=== PATIENT | female | born 1995 | race Caucasian/White ===

== ENCOUNTER 2024-07-24 10:47 | Inpatient (IN) | payer OTHER, SELFPAY ==
[2024-07-24] VITALS (16 sets, daily range): BP systolic 102–121; BP diastolic 70–83; PULSE 104–142; RESP 16–26; TEMP 36.8–38.3; O2SAT 93–98; BMI 23.4; BMI 50.8
--- NOTE | 2024-07-24 11:53 | EX.ED.DYSGE1 ---
HPI History of Present Illness Chief Complaint: General Illness Informant: patient Onset/Context/Timing Onset: Today Context: Sudden Onset Timing: Continuous Quality: Cannot take a deep breath Location: Chest Worsened by: Nothing Relieved by: Oxygen, Fan Narrative Narrative: Patient presents with shortness of breath and not feeling well that began today. Patient states it began rather suddenly. Patient states she woke up like that this morning. Patient states she feels like she cannot take a deep breath. Patient states that EMS administered oxygen which seemed to help. Patient states she also sat in front of a fan today which helped. Patient admits to a fever of 102. Patient states that several family members have been sick with similar symptoms recently. Patient states she is coughing up some thick sputum. Patient states she did not look at it and does not know what color it was. Patient states she feels like her heart is racing at times. Patient also admits to generalized headache. PFSH PFS Medical History no medical history no medical history Home Medications ?Medication ?Instructions ?Recorded ?Last Taken ?Type NK 07/24/24 Unknown History Allergy/AdvReac Type Severity Reaction Status Date / Time No Known Allergies Allergy Verified 07/24/24 10:48 Surgical History no surgical history no surgical history Social History Smoking Status: Never smoker ROS ROS ED Constitutional Constitutional ED: Reports fever(s); Denies chills Eyes Eyes: Denies blurry vision or change in vision ENT ENT ED: Denies rhinorrhea or sore throat Cardiovascular Cardiovascular: Reports racing heartbeat; Denies chest pain Respiratory/Chest Respiratory/Chest: Reports cough, dyspnea and sputum Gastrointestinal Gastrointestinal: Denies nausea or vomiting Genitourinary Genitourinary ED: Denies dysuria or hematuria Musculoskeletal Musculoskeletal: Reports back pain; Denies neck pain Integumentary Denies abscess or rash Neurologic Neurologic: Reports headache(s); Denies weakness Allergic/Immunologic Allergic/Immunologic ED: Denies mouth swelling or urticaria EXAM Physical Exam Const Vital Signs: 07/24/24 10:49 07/24/24 10:49 07/24/24 11:07 Temperature 101 F H 98.2 F Temperature Source Oral Temporal Pulse Rate 127 H 130 H Pulse Rate [Lying] Pulse Rate [Sitting (for 1 minute prior to obtaining)] Pulse Rate [Standing (for 1 minute prior to obtaining)] Respiratory Rate 16 24 H Respiratory Effort Normal Non-Labored Respiratory Pattern Tachypnea Blood Pressure 121/82 H 114/83 H Blood Pressure [Lying] Blood Pressure [Sitting (for 1 minute prior to obtaining)] Blood Pressure [Standing (for 1 minute prior to obtaining)] Blood Pressure Mean 95 93 Blood Pressure Mean [Lying] Blood Pressure Mean [Sitting (for 1 minute prior to obtaining)] Blood Pressure Mean [Standing (for 1 minute prior to obtaining)] Pulse Ox 94 94 Oxygen Delivery Method Room Air Oxygen Flow Rate (L/min) 07/24/24 11:48 07/24/24 12:00 07/24/24 12:07 Temperature 98.2 F Temperature Source Temporal Pulse Rate 128 H 128 H 124 H Pulse Rate [Lying] Pulse Rate [Sitting (for 1 minute prior to obtaining)] Pulse Rate [Standing (for 1 minute prior to obtaining)] Respiratory Rate 20 H 20 H 24 H Respiratory Effort Respiratory Pattern Blood Pressure 111/78 111/78 114/80 Blood Pressure [Lying] Blood Pressure [Sitting (for 1 minute prior to obtaining)] Blood Pressure [Standing (for 1 minute prior to obtaining)] Blood Pressure Mean 89 89 91 Blood Pressure Mean [Lying] Blood Pressure Mean [Sitting (for 1 minute prior to obtaining)] Blood Pressure Mean [Standing (for 1 minute prior to obtaining)] Pulse Ox 96 96 94 Oxygen Delivery Method Oxygen Flow Rate (L/min) 07/24/24 12:30 07/24/24 12:45 07/24/24 13:00 Temperature 100.5 F H Temperature Source Axillary Pulse Rate 128 H 138 H Pulse Rate [Lying] 127 H Pulse Rate [Sitting (for 1 minute prior to obtaining)] 133 H Pulse Rate [Standing (for 1 minute prior to obtaining)] 142 H Respiratory Rate 20 H 26 H Respiratory Effort Respiratory Pattern Normal Blood Pressure 113/83 H Blood Pressure [Lying] 112/76 Blood Pressure [Sitting (for 1 minute prior to obtaining)] 119/82 H Blood Pressure [Standing (for 1 minute prior to obtaining)] 114/81 H Blood Pressure Mean 93 Blood Pressure Mean [Lying] 88 Blood Pressure Mean [Sitting (for 1 minute prior to obtaining)] 94 Blood Pressure Mean [Standing (for 1 minute prior to obtaining)] 92 Pulse Ox 93 Oxygen Delivery Method Oxygen Flow Rate (L/min) 07/24/24 13:00 07/24/24 14:00 07/24/24 14:00 Temperature 100.7 F H Temperature Source Axillary Pulse Rate 138 H 128 H 124 H Pulse Rate [Lying] Pulse Rate [Sitting (for 1 minute prior to obtaining)] Pulse Rate [Standing (for 1 minute prior to obtaining)] Respiratory Rate 24 H 24 H 24 H Respiratory Effort Respiratory Pattern Blood Pressure 113/82 H 107/80 107/80 Blood Pressure [Lying] Blood Pressure [Sitting (for 1 minute prior to obtaining)] Blood Pressure [Standing (for 1 minute prior to obtaining)] Blood Pressure Mean 92 89 89 Blood Pressure Mean [Lying] Blood Pressure Mean [Sitting (for 1 minute prior to obtaining)] Blood Pressure Mean [Standing (for 1 minute prior to obtaining)] Pulse Ox 93 93 93 Oxygen Delivery Method Oxygen Flow Rate (L/min) 07/24/24 15:00 07/24/24 15:00 Temperature 100 F H Temperature Source Axillary Pulse Rate 124 H 124 H Pulse Rate [Lying] Pulse Rate [Sitting (for 1 minute prior to obtaining)] Pulse Rate [Standing (for 1 minute prior to obtaining)] Respiratory Rate 24 H 24 H Respiratory Effort Respiratory Pattern Blood Pressure 103/71 103/71 Blood Pressure [Lying] Blood Pressure [Sitting (for 1 minute prior to obtaining)] Blood Pressure [Standing (for 1 minute prior to obtaining)] Blood Pressure Mean 81 81 Blood Pressure Mean [Lying] Blood Pressure Mean [Sitting (for 1 minute prior to obtaining)] Blood Pressure Mean [Standing (for 1 minute prior to obtaining)] Pulse Ox 97 Oxygen Delivery Method Nasal Cannula Oxygen Flow Rate (L/min) 3 Positive well nourished and well developed General Appearance ED: well developed and NAD HEENT Reports moist mucous membranes Neck supple and no JVD Resp normal respiratory effort Auscultation: diminished lung sounds diffuse Cardio regular rhythm Rate: tachycardic GI non-tender and non-distended Palpation: soft Extremity normal to inspection General Extremety ED: Negative for edema or tenderness General Extremity: Negative for edema Neuro oriented x3, CN's II-XII intact bilaterally and no sensory deficits noted Sensorium / Orientation: alert Motor Exam: strength 5/5 throughout Psych mental status grossly normal MDM MDM MDM Narrative Medical decision making narrative: Differential diagnosis includes pneumonia, bronchitis, viral illness, pulmonary embolism, electrolyte abnormality, cardiac dysrhythmia, cardiac ischemia, and anxiety. EKG will be obtained to assess for cardiac dysrhythmia and cardiac ischemia. Chest x-ray will be obtained to assess for pneumonia and pneumothorax. CBC will be obtained to assess for leukocytosis and anemia. Basic metabolic profile will be obtained to assess for electrolyte abnormality and renal function. High-sensitivity troponin will be obtained to assess for cardiac ischemia. D-dimer will be obtained to assess for pulmonary embolism. Serum lactate will be obtained to assess for sepsis. COVID-19, influenza, and RSV PCR will be obtained to assess for viral illness. Lab Data Attestation: I reviewed the patient's lab results. Lab results narrative: CBC was reviewed and was within normal limits. D-dimer was reviewed and was normal at 0.48. Basic metabolic profile was reviewed and was within normal limits. High-sensitivity troponin was reviewed and was normal at 4. Serum lactate was reviewed and was normal at 1.2. Serum hCG was reviewed and was negative. Urinalysis was reviewed. There is no evidence of urinary tract infection or hematuria. COVID-19 PCR was reviewed and was negative. Influenza PCR was reviewed and was positive for influenza A and was negative for influenza B. RSV PCR was reviewed and was negative. Labs: Laboratory Results - last 24 hr 07/24/24 07/24/24 12:56 13:05 WBC 4.4 RBC 4.21 Hgb 12.1 Hct 35.7 L MCV 84.8 MCH 28.7 MCHC 33.9 RDW Std Deviation 43.3 RDW Coeff of Lucas 13.9 Plt Count 154 MPV 9.7 Immature Gran % (Auto) 0.200 Neut % (Auto) 76.2 H Lymph % (Auto) 16.6 L [place] % (Auto) 6.8 Eos % (Auto) 0.0 Baso % (Auto) 0.2 Absolute Neuts (auto) 3.4 Absolute Lymphs (auto) 0.73 L Nucleated RBC % 0 D-Dimer Quant (PE/DVT) 0.48 Sodium 133 L Potassium 3.5 Chloride 98 Carbon Dioxide 26.0 Anion Gap 9 BUN 9 Creatinine 0.74 Estim Creat Clear Calc 95.99 Est GFR (MDRD) Af Amer 119 Est GFR (MDRD) Non-Af 98 BUN/Creatinine Ratio 12.2 Glucose 106 Lactic Acid 1.2 Calcium 8.8 Troponin I High Sens 4 Serum , Qual NEGATIVE Urine Color Yellow Urine Clarity Clear Urine pH 6.0 Ur Specific [place] 1.015 Urine Protein 30 H Urine Glucose (UA) Normal Urine Ketones 50 H Urine Occult Blood 10 H Urine Nitrite Negative Urine Bilirubin Negative Urine Urobilinogen Normal Ur Leukocyte Esterase 25 H Urine RBC 0 SEEN Urine WBC 0-5 SEEN Ur Squamous Epith Cells 0 SEEN Ur Renal Epithelial Cell 0-5 SEEN Urine Bacteria RARE Urine Mucus 0 SEEN Radiography Chest X-Ray - ED: 2 View, Read by ED Physician, Read by Radiologist and Left Infiltrate Diagnostic Testing: Clinical Impression(s) from Imaging Studies Chest X-Ray 07/24/24 13:21 IMPRESSION: Left lower lobe infiltrate concerning for pneumonia. Electronically Signed: Gamal Fuentes MD at 13:36 EST , PA and lateral chest x-ray was obtained. There are 2 views. On my independent interpretation, lung gomez show a left lower lobe infiltrate. There is normal cardiac silhouette. Bony thorax is normal. There is no acute process noted. Radiologist also interpreted the x-ray and agrees. EKG Initial EKG: Attestation: I personally reviewed and interpreted this EKG as follows: Interpretation: No Acute Injury Pattern, Sinus Tachycardia (125) and RBBB (Incomplete) Comments: EKG was obtained. On my independent interpretation, it shows sinus tachycardia with a rate of 125. LA interval was normal at 136 ms. QRS was normal at 96 ms. QTc interval was normal at 407 ms. [place] was normal. There is an incomplete right bundle branch block pattern noted. There are no acute ST or T wave changes noted. Prior EKG tracings: not available for review Prior: No Prior Treatment and Re-Evaluation :: Patient was given IV fluids. Patient's heart rate improved somewhat after this. However, it was still in the 120s. Patient was given a dose of Tylenol. Patient was given a DuoNeb aerosol. Patient was given a dose of Tamiflu. Patient's oxygen saturation dropped to 87% on room air while sitting in the bed. Because of this, patient was started on oxygen. Because of the patient's drop in oxygen saturation, case was discussed with the hospitalist. She will be in to evaluate the patient for admission. Patient will be admitted to [facility]. Patient and family understood and were agreeable with the plan. All questions were answered. Discharge Plan Triage Chief Complaint: General Illness ED Provider: Arsen Guan Dx/Rx/DC Orders Clinical Impression: Influenza A, Hypoxia, Pneumonia, Tachycardia Prescriptions: No Action NK Primary Care Provider: Farhat Gann Referrals: Farhat Gann MD [Primary Care Provider] - Print Language: Welsh Disposition Disposition: Acute Care Hospital [facility]
--- NOTE | 2024-07-24 12:17 | EKG12_ITS ---
Test Reason : Blood Pressure : */* mmHG Vent. Rate : 125 BPM Atrial Rate : 125 BPM P-R Int : 136 ms QRS Dur : 96 ms QT Int : 282 ms P-R-T Axes : 66 42 46 degrees QTcB Int : 407 ms Sinus tachycardia Possible Left atrial enlargement Incomplete right bundle branch block Borderline ECG Confirmed by TANA RIVERO, CHRISTIAN ([id number]), subeditor AZRA STEVENSON ([id number]) on 07/30/2024 7:08:10 AM Referred By: GIO Confirmed By: CHRISTIAN FAJARDO MD
[2024-07-24] MEDS: Ipratropium/Albuterol Sulfate 3 ML AMPUL.NEB INHALATION ×2 (12:28→21:37)
[2024-07-24] MEDS: 0.9% Normal Saline (1000mL) 1,000 ML 1000 ML IV ×2 (12:47→13:13)
[2024-07-24] MEDS: Morphine 4 MG/ML Syringe IV (13:04)
[2024-07-24 13:06] LABS: Absolute Lymphocyte Count 0.73 X10^3/uL (0.83-4.51); Absolute Neutrophil Count 3.4 X10^3/uL (2.0-7.7); Basophil# 0.01 X10^3/uL; Basophil% 0.2 % (0-1); Hematocrit 35.7 % (37-47); Hemoglobin 12.1 g/dL (12.0-15.0); Lymphocyte # 0.73 X10^3/ul (0.83-4.51); Lymphocyte % 16.6 % (19-41); Mean Corp Hgb Conc 33.9 g/dL (32-36); Mean Corpuscular Hgb 28.7 pg (27.0-32.0); Mean Corpuscular Volume 84.8 fL (81-99); Mean Platelet Vol. 9.7 fl (6.2-12.0); Monocyte% 6.8 % (0-10); NRBC Flagged by Analyzer 0 % (0-5); Neutrophil # 3.35 X10^3/uL (2.7-7.7); Neutrophil % 76.2 % (47-70); Platelet Count 154 K/mm3 (150-450); RBC Distribution Width CV 13.9 % (11.6-14.6); RBC Distribution Width SD 43.3 fl (35.1-43.9); Red Blood Count 4.21 M/mm3 (4.2-5.4); White Blood Count 4.4 K/mm3 (4.4-11.0)
[2024-07-24 13:18] LABS: D-Dimer Quantitative (DVT/PE) 0.48 FEU/ug/m (0.27-0.49)
--- NOTE | 2024-07-24 13:21 | RAD_ITS ---
INDICATION: Dyspnea EXAMINATION/TECHNIQUE: X-RAY - XR Chest 2 Views COMPARISON: No relevant prior comparison study available FINDINGS: LINES/DEVICES: None. LUNGS: Left lower lobe infiltrate concerning for pneumonia. No evidence of pleural effusions. MEDIASTINUM AND CARDIOVASCULAR STRUCTURES: Cardiac silhouette not enlarged. Central airways and mediastinal contour are unremarkable. BONES AND SOFT TISSUES: Unremarkable. RAD/Chest PA and Lateral IMPRESSION: Left lower lobe infiltrate concerning for pneumonia. Electronically Signed: Gamal Fuentes MD at 13:36 EST ,
[2024-07-24 13:22] LABS: Mucous, Urine 0 SEEN /hpf (<or=2+); Red Blood Cells-Urine 0 SEEN /hpf (0-5); Squamous Epithelial Cells - UA 0 SEEN /hpf (5-10)
[2024-07-24 13:30] LABS: Color, Urine Yellow (Yellow); Glucose, Dipstick Normal (Normal); Ketone-Dipstick 50 mg/dl (Negative); Leukocyte Esterase-Dipstick 25 /ul (Negative); Nitrite-Dipstick Negative (Negative); Occult Blood-Urine 10 /ul (Negative); Protein-Dipstick 30 mg/dl (Negative); Specific Gravity, Urine 1.015 (1.002-1.030); Urine Bilirubin Dipstick Negative (Negative); Urine Clarity Clear (Clear); Urine Urobilinogen Normal (Normal)
[2024-07-24 13:34] LABS: Lactic Acid 1.2 mmol/L (0.4-1.9)
[2024-07-24 13:35] LABS: Internal QC Validated? YES +Cl - CLEAR BKGD; Pregnancy, Serum, hCG Quali. NEGATIVE Negative
[2024-07-24 13:39] LABS: Anion Gap 9 (5-15); BUN 9 mg/dL (7-18); BUN/Creat Ratio 12.2 RATIO (10-20); Calcium,Total 8.8 mg/dL (8.5-10.1); Chloride 98 mmol/L (98-107); Creatinine, Serum 0.74 mg/dL (0.55-1.02); EST Glomerular Filtration Rate 98 mL/min (>60); Est Glom Filt Rate - Afr Amer 119 mL/min (>60); Estimated Creatinine Clearance 95.99 ml/min; Glucose 106 mg/dL (74-106); Potassium 3.5 mmol/L (3.5-5.1); Sodium Level 133 mmol/L (136-145); Troponin-I HS 4 pg/mL (3.0-54.0)
[2024-07-24 13:52] LABS: White Blood Cells 0-5 SEEN /hpf (0-5)
[2024-07-24 13:53] LABS: Bacteria RARE /hpf (None Seen); Renal Epithelial Cells 0-5 SEEN /hpf (0-5)
[2024-07-24] MEDS: Acetaminophen 500 MG Tablet 1000 MG PO (14:18)
[2024-07-24] MEDS: Oseltamivir Phosphate 75 MG Capsule PO ×2 (14:18→22:08)
--- NOTE | 2024-07-24 16:41 | HP.PCM.HOS_ITS ---
HPI - General General Date of Admission: 07/24/24 Date of Service: 07/24/24 Chief Complaint: Difficulty breathing HPI Narrative DEMARCUS LY, is a 28y/o w/ no significant PMH presented to [facility] ED 07/24/24 d/t inability to take a deep breath that started today and she woke up with it. Multiple family members sick and she reported a fever of 102. Is coughing up thick sputum but unsure what color it is. In ED pt was tachycardic and febrile and found to have influenza A, additionally noted to have infiltrate in LLL on CXR. In the ED she was given a dose of Tamiflu, heart rate did improve though still tachycardic but then was found to drop to 87% on room air and placed on 2 L so hospitalist contacted for admission. Patient evaluated bedside, has been coughing for several days but today is 1 she began having shortness of breath, did note fever and cough but unclear quality of sputum. No other acute complaints. Patient is feeling somewhat better in the ED after receiving breathing treatment and oseltamavir. PFSH Medical History no medical history Home Medications ?Medication ?Instructions ?Recorded ?Last Taken ?Type NK 07/24/24 Unknown History Allergy/AdvReac Type Severity Reaction Status Date / Time No Known Allergies Allergy Verified 07/24/24 10:48 Surgical History no surgical history Social History Smoking Status: Never smoker ROS ROS Narrative General: Fevers HENT: Intermittent headache EYES: Denies changes in vision Resp: Cough with some sputum but unclear color, difficulty taking a deep breath Cardiac: Denies chest pain GI: Denies abdominal pain, denies changes in bowel, denies nausea/vomiting : Denies changes in urination Extremity: Denies swelling MSK: Somewhat weak overall Neuro: Denies any numbness/tingling Heme: Denies any bleeding or bruising Skin: Denies rashes Psychiatric: No complaints voiced Vital Signs Vital Signs Vital Signs: 07/24/24 10:49 07/24/24 10:49 07/24/24 11:07 Temperature 101 F H 98.2 F Temperature Source Oral Temporal Pulse Rate 127 H 130 H Pulse Rate [Lying] Pulse Rate [Sitting (for 1 minute prior to obtaining)] Pulse Rate [Standing (for 1 minute prior to obtaining)] Respiratory Rate 16 24 H Respiratory Effort Normal Non-Labored Respiratory Pattern Tachypnea Blood Pressure 121/82 H 114/83 H Blood Pressure [Lying] Blood Pressure [Sitting (for 1 minute prior to obtaining)] Blood Pressure [Standing (for 1 minute prior to obtaining)] Blood Pressure Mean 95 93 Blood Pressure Mean [Lying] Blood Pressure Mean [Sitting (for 1 minute prior to obtaining)] Blood Pressure Mean [Standing (for 1 minute prior to obtaining)] Pulse Ox 94 94 Oxygen Delivery Method Room Air Oxygen Flow Rate (L/min) 07/24/24 11:48 07/24/24 12:00 07/24/24 12:07 Temperature 98.2 F Temperature Source Temporal Pulse Rate 128 H 128 H 124 H Pulse Rate [Lying] Pulse Rate [Sitting (for 1 minute prior to obtaining)] Pulse Rate [Standing (for 1 minute prior to obtaining)] Respiratory Rate 20 H 20 H 24 H Respiratory Effort Respiratory Pattern Blood Pressure 111/78 111/78 114/80 Blood Pressure [Lying] Blood Pressure [Sitting (for 1 minute prior to obtaining)] Blood Pressure [Standing (for 1 minute prior to obtaining)] Blood Pressure Mean 89 89 91 Blood Pressure Mean [Lying] Blood Pressure Mean [Sitting (for 1 minute prior to obtaining)] Blood Pressure Mean [Standing (for 1 minute prior to obtaining)] Pulse Ox 96 96 94 Oxygen Delivery Method Oxygen Flow Rate (L/min) 07/24/24 12:30 07/24/24 12:45 07/24/24 13:00 Temperature 100.5 F H Temperature Source Axillary Pulse Rate 128 H 138 H Pulse Rate [Lying] 127 H Pulse Rate [Sitting (for 1 minute prior to obtaining)] 133 H Pulse Rate [Standing (for 1 minute prior to obtaining)] 142 H Respiratory Rate 20 H 26 H Respiratory Effort Respiratory Pattern Normal Blood Pressure 113/83 H Blood Pressure [Lying] 112/76 Blood Pressure [Sitting (for 1 minute prior to obtaining)] 119/82 H Blood Pressure [Standing (for 1 minute prior to obtaining)] 114/81 H Blood Pressure Mean 93 Blood Pressure Mean [Lying] 88 Blood Pressure Mean [Sitting (for 1 minute prior to obtaining)] 94 Blood Pressure Mean [Standing (for 1 minute prior to obtaining)] 92 Pulse Ox 93 Oxygen Delivery Method Oxygen Flow Rate (L/min) 07/24/24 13:00 07/24/24 14:00 07/24/24 14:00 Temperature 100.7 F H Temperature Source Axillary Pulse Rate 138 H 128 H 124 H Pulse Rate [Lying] Pulse Rate [Sitting (for 1 minute prior to obtaining)] Pulse Rate [Standing (for 1 minute prior to obtaining)] Respiratory Rate 24 H 24 H 24 H Respiratory Effort Respiratory Pattern Blood Pressure 113/82 H 107/80 107/80 Blood Pressure [Lying] Blood Pressure [Sitting (for 1 minute prior to obtaining)] Blood Pressure [Standing (for 1 minute prior to obtaining)] Blood Pressure Mean 92 89 89 Blood Pressure Mean [Lying] Blood Pressure Mean [Sitting (for 1 minute prior to obtaining)] Blood Pressure Mean [Standing (for 1 minute prior to obtaining)] Pulse Ox 93 93 93 Oxygen Delivery Method Oxygen Flow Rate (L/min) 07/24/24 15:00 07/24/24 15:00 07/24/24 15:49 Temperature 100 F H 98.5 F Temperature Source Axillary Pulse Rate 124 H 124 H 114 H Pulse Rate [Lying] Pulse Rate [Sitting (for 1 minute prior to obtaining)] Pulse Rate [Standing (for 1 minute prior to obtaining)] Respiratory Rate 24 H 24 H 22 H Respiratory Effort Respiratory Pattern Blood Pressure 103/71 103/71 103/73 Blood Pressure [Lying] Blood Pressure [Sitting (for 1 minute prior to obtaining)] Blood Pressure [Standing (for 1 minute prior to obtaining)] Blood Pressure Mean 81 81 83 Blood Pressure Mean [Lying] Blood Pressure Mean [Sitting (for 1 minute prior to obtaining)] Blood Pressure Mean [Standing (for 1 minute prior to obtaining)] Pulse Ox 97 95 Oxygen Delivery Method Nasal Cannula Oxygen Flow Rate (L/min) 3 07/24/24 15:49 07/24/24 16:00 Temperature Temperature Source Pulse Rate 113 H Pulse Rate [Lying] Pulse Rate [Sitting (for 1 minute prior to obtaining)] Pulse Rate [Standing (for 1 minute prior to obtaining)] Respiratory Rate 18 Respiratory Effort Respiratory Pattern Blood Pressure 102/71 Blood Pressure [Lying] Blood Pressure [Sitting (for 1 minute prior to obtaining)] Blood Pressure [Standing (for 1 minute prior to obtaining)] Blood Pressure Mean 81 Blood Pressure Mean [Lying] Blood Pressure Mean [Sitting (for 1 minute prior to obtaining)] Blood Pressure Mean [Standing (for 1 minute prior to obtaining)] Pulse Ox 95 95 Oxygen Delivery Method Nasal Cannula Nasal Cannula Oxygen Flow Rate (L/min) 2 2 Weight Weight: 61.87 kg Body Mass Index (BMI) 23.4 Physical Exam Narrative General: Alert, oriented HEENT: Atraumatic, normocephalic Eyes: Anicteric, normal conjunctiva, extraocular movements grossly intact Neck: Supple Respiratory: Scattered wheezing, increased respiratory effort Cardiovascular: Sinus tachycardia GI: Soft, nontender, nondistended Extremities: No edema Musculoskeletal: Moving all extremities Neuro: No overt focal neurological deficits Skin: No rashes appreciated Psych: Cooperative Results Lab / Micro Data 07/24/24 12:56 07/24/24 12:56 Labs: Laboratory Results - last 24 hr 07/24/24 12:56: WBC 4.4, RBC 4.21, Hgb 12.1, Hct 35.7 L, MCV 84.8, MCH 28.7, MCHC 33.9, RDW Std Deviation 43.3, RDW Coeff of Lucas 13.9, Plt Count 154, MPV 9.7, Immature Gran % (Auto) 0.200, Neut % (Auto) 76.2 H, Lymph % (Auto) 16.6 L, [place] % (Auto) 6.8, Eos % (Auto) 0.0, Baso % (Auto) 0.2, Absolute Neuts (auto) 3.4, Absolute Lymphs (auto) 0.73 L, Nucleated RBC % 0, D-Dimer Quant (PE/DVT) 0.48, Sodium 133 L, Potassium 3.5, Chloride 98, Carbon Dioxide 26.0, Anion Gap 9, BUN 9, Creatinine 0.74, Estim Creat Clear Calc 95.99, Est GFR (MDRD) Af Amer 119, Est GFR (MDRD) Non-Af 98, BUN/Creatinine Ratio 12.2, Glucose 106, Lactic Acid 1.2, Calcium 8.8, Troponin I High Sens 4, Serum , Qual NEGATIVE 07/24/24 13:05: Urine Color Yellow, Urine Clarity Clear, Urine pH 6.0, Ur Specific [place] 1.015, Urine Protein 30 H, Urine Glucose (UA) Normal, Urine Ketones 50 H, Urine Occult Blood 10 H, Urine Nitrite Negative, Urine Bilirubin Negative, Urine Urobilinogen Normal, Ur Leukocyte Esterase 25 H, Urine RBC 0 SEEN, Urine WBC 0-5 SEEN, Ur Squamous Epith Cells 0 SEEN, Ur Renal Epithelial Cell 0-5 SEEN, Urine Bacteria RARE, Urine Mucus 0 SEEN Micro: Microbiology 07/24/24 12:45 Mucosa - Nose SARS-CoV-2, Influenza & RSV (PCR) - Final Influenzae A Imaging Radiology Impression Chest X-Ray 07/24/24 13:21 IMPRESSION: Left lower lobe infiltrate concerning for pneumonia. Electronically Signed: Gamal Fuentes MD at 13:36 EST , Assessment & Plan Assessment/Plan (1) Hypoxia: (2) Influenza A: PLAN: Plan # Hypoxia secondary to influenza A -Additionally patient has left lower lobe infiltrate nonproductive cough -Given she had cough for several days and then acutely worsened cannot rule out bacterial component, will cover for CAP for possible secondary bacterial infection -DuoNebs and as needed albuterol -Sputum culture -Mucinex, I/S -Rocephin and azithromycin #DVT ppx: SCDs Tosha Mares MD Charges/Coding Visit Charges Inpatient E&M: 74050 Init Hosp L1
[2024-07-24] MEDS: Azithromycin 500 MG in 0.9% Normal Saline (250mL Bag) 250 ML 255 MG IV (20:04)
[2024-07-24] MEDS: 0.9% Saline Lock 10 ML Syringe IV (20:05)
[2024-07-24] MEDS: Ceftriaxone 2 GM in 0.9% Normal Saline (50mL MB+) 50 ML IV (22:00)
[2024-07-24] MEDS: guaiFENesin 1,200 MG Tablet 1200 MG PO (22:08)
[2024-07-25] VITALS (8 sets, daily range): BP systolic 100–115; BP diastolic 72–87; PULSE 101–112; RESP 15–18; TEMP 36.6–36.8; O2SAT 96–98
[2024-07-25 05:54] LABS: Absolute Lymphocyte Count 0.96 X10^3/uL (0.83-4.51); Absolute Neutrophil Count 3.5 X10^3/uL (2.0-7.7); Basophil# 0.01 X10^3/uL; Basophil% 0.2 % (0-1); Hematocrit 33.8 % (37-47); Hemoglobin 11.1 g/dL (12.0-15.0); Lymphocyte # 0.96 X10^3/ul (0.83-4.51); Lymphocyte % 19.8 % (19-41); Mean Corp Hgb Conc 32.8 g/dL (32-36); Mean Corpuscular Volume 85.4 fL (81-99); Mean Platelet Vol. 9.8 fl (6.2-12.0); Monocyte# 0.38 X10^3/uL; Monocyte% 7.9 % (0-10); NRBC Flagged by Analyzer 0 % (0-5); Neutrophil # 3.46 X10^3/uL (2.7-7.7); Neutrophil % 71.5 % (47-70); Platelet Count 159 K/mm3 (150-450); RBC Distribution Width CV 14.3 % (11.6-14.6); RBC Distribution Width SD 44.9 fl (35.1-43.9); Red Blood Count 3.96 M/mm3 (4.2-5.4); White Blood Count 4.8 K/mm3 (4.4-11.0)
[2024-07-25 06:50] LABS: Anion Gap 8 (5-15); BUN 7 mg/dL (7-18); BUN/Creat Ratio 17.2 RATIO (10-20); Calcium,Total 8.3 mg/dL (8.5-10.1); Chloride 107 mmol/L (98-107); Creatinine, Serum 0.41 mg/dL (0.55-1.02); EST Glomerular Filtration Rate 195 mL/min (>60); Est Glom Filt Rate - Afr Amer 235 mL/min (>60); Estimated Creatinine Clearance 274.36 ml/min; Glucose 93 mg/dL (74-106); Potassium 3.8 mmol/L (3.5-5.1); Sodium Level 135 mmol/L (136-145)
[2024-07-25] MEDS: Ipratropium/Albuterol Sulfate 3 ML AMPUL.NEB INHALATION ×3 (08:17→20:31)
[2024-07-25] MEDS: guaiFENesin 1,200 MG Tablet 1200 MG PO ×2 (10:16→21:47)
[2024-07-25] MEDS: Oseltamivir Phosphate 75 MG Capsule PO ×2 (10:16→21:47)
--- NOTE | 2024-07-25 10:30 | PN_ITS ---
Subjective Subjective Patient seen and examined. Her was by her bedside. She still complains of shortness of breath. She admits to cough but denied any chest pain, palpitations, dizziness, nausea, vomiting or any other symptoms. Review of systems is otherwise negative. Objective Data Objective Data Vital Signs: Vital Signs Temp Pulse Resp BP Pulse Ox O2 Del Method O2 Flow Rate 98.2 F 101 H 16 100/72 96 Nasal Cannula 1 07/25/24 10:00 07/25/24 10:00 07/25/24 10:00 07/25/24 10:00 07/25/24 10:00 07/25/24 10:00 07/25/24 10:00 Oxygen Flow Rate (L/min) 1 Oxygen Delivery Method Nasal Cannula Weight: 134 lb 14.308 oz Body Mass Index (BMI) 50.8 Intake & Output: Intake and Output for Last 24 Hours 07/23/24 07/24/24 07/25/24 23:59 23:59 23:59 Intake Total 2305 / 2305 Balance 2305 / 2305 Lab / Micro Data 07/25/24 05:15 07/25/24 05:15 Labs: Laboratory Results - last 24 hr 07/24/24 12:56: WBC 4.4, RBC 4.21, Hgb 12.1, Hct 35.7 L, MCV 84.8, MCH 28.7, MCHC 33.9, RDW Std Deviation 43.3, RDW Coeff of Lucas 13.9, Plt Count 154, MPV 9.7, Immature Gran % (Auto) 0.200, Neut % (Auto) 76.2 H, Lymph % (Auto) 16.6 L, Larimer % (Auto) 6.8, Eos % (Auto) 0.0, Baso % (Auto) 0.2, Absolute Neuts (auto) 3.4, Absolute Lymphs (auto) 0.73 L, Nucleated RBC % 0, D-Dimer Quant (PE/DVT) 0.48, Sodium 133 L, Potassium 3.5, Chloride 98, Carbon Dioxide 26.0, Anion Gap 9, BUN 9, Creatinine 0.74, Estim Creat Clear Calc 95.99, Est GFR (MDRD) Af Amer 119, Est GFR (MDRD) Non-Af 98, BUN/Creatinine Ratio 12.2, Glucose 106, Lactic Acid 1.2, Calcium 8.8, Troponin I High Sens 4, Serum , Qual NEGATIVE 07/24/24 13:05: Urine Color Yellow, Urine Clarity Clear, Urine pH 6.0, Ur Specific Reese 1.015, Urine Protein 30 H, Urine Glucose (UA) Normal, Urine Ketones 50 H, Urine Occult Blood 10 H, Urine Nitrite Negative, Urine Bilirubin Negative, Urine Urobilinogen Normal, Ur Leukocyte Esterase 25 H, Urine RBC 0 SEEN, Urine WBC 0-5 SEEN, Ur Squamous Epith Cells 0 SEEN, Ur Renal Epithelial Cell 0-5 SEEN, Urine Bacteria RARE, Urine Mucus 0 SEEN 07/25/24 05:15: WBC 4.8, RBC 3.96 L, Hgb 11.1 L, Hct 33.8 L, MCV 85.4, MCH 28.0, MCHC 32.8, RDW Std Deviation 44.9 H, RDW Coeff of Lucas 14.3, Plt Count 159, MPV 9.8, Immature Gran % (Auto) 0.600, Neut % (Auto) 71.5 H, Lymph % (Auto) 19.8, Larimer % (Auto) 7.9, Eos % (Auto) 0.0, Baso % (Auto) 0.2, Absolute Neuts (auto) 3.5, Absolute Lymphs (auto) 0.96, Nucleated RBC % 0, Sodium 135 L, Potassium 3.8, Chloride 107, Carbon Dioxide 20.0 L, Anion Gap 8, BUN 7, Creatinine 0.41 L, Estim Creat Clear Calc 274.36, Est GFR (MDRD) Af Amer 235, Est GFR (MDRD) Non-Af 195, BUN/Creatinine Ratio 17.2, Glucose 93, Calcium 8.3 L Micro: Microbiology 07/24/24 12:45 Mucosa - Nose SARS-CoV-2, Influenza & RSV (PCR) - Final Influenzae A Radiography Diagnostic Testing: Radiology Impression Chest X-Ray 07/24/24 13:21 IMPRESSION: Left lower lobe infiltrate concerning for pneumonia. Electronically Signed: Gamal Fuentes MD at 13:36 EST , Physical Exam Const alert, oriented x3 and no apparent distress Constitutional Narrative: frail looking General Appearance: cooperative HEENT normocephalic, head/scalp atraumatic, moist oral mucous membranes, oropharynx normal and gingiva normal Eyes PERRL and EOMs intact bilaterally Neck no lymphadenopathy and supple Lymph Lymphatic: no lymphadenopathy noted and no lymphedema noted Resp Resp Narrative: mildly diminished breath sounds bibasally, no wheezes or crackles. On 1L of oxygen by nasal canula Cardio regular rate, regular rhythm, S1 normal heart sound, S2 normal heart sound and no murmurs GI normal to inspection, nondistended, normoactive bowel sounds, soft to palpation, non-tender and non-distended Extremity normal capillary refill, no clubbing, cyanosis or edema and no calf tenderness General Extremity: no tenderness to palpation of joints or extremities Skin General Skin Exam: no breakdown Neuro CN's II-XII intact bilaterally, no focal motor deficits and no sensory deficits noted Motor Exam: strength 5/5 throughout and general weakness Psych thought process normal and cooperative Appearance: appropriate Assessment & Plan Assessment/Plan (1) Pneumonia: (2) Influenza A: (3) Hypoxia: PLAN: Plan #HYpoxia due to Influenza infection and superimposed pneumonia * patient on 1L of oxygen. * on tamiflu and IV ceftriaxone as well as azithromycin. * breathing treatment with bronchodilators. * titrate oxygen to maintain sats >90% * DVT prophylaxis: SCDs Charges/Coding Visit Charges Inpatient E&M: 27946 Subs Hosp L2
--- NOTE | 2024-07-25 16:10 | CASEMGMT ---
NEVA FREGOSO Face to Face with patient for initial transition planning/care coordination assessment. RN CM introduced self and role at [facility]. Patient lying in bed, alert and oriented. Patient willing to participate in assessment and is able to answer all questions appropriately. Care providers, pharmacy, and demographics verified. Strata: 1 PCP: Sanjuaniat Specialists: none Preferred Pharmacy: [facility]; [facility] at discharge. [place] [facility] [place]: [place] Living Will/HPOA: none LNOK: Living Arrangements: Patient lives with and children in a 2 story home with bed and bath on first floor, 6 steps and railing. Patient is independent at home and able to ambulate stairs. Transportation: driving services DME/HHC: Patient states they have a nebulizer at home. Has generator for electricity. Will monitor for home oxygen, prefers [employer] Patient wishes to discharge home, denies need for home health at this time. Patient states she has no further needs or concerns at this time. CM to follow for discharge planning needs that may arise. Disposition Plan: Patient to discharge home with family support and follow-up plans in place. Will monitor for home oxygen. Ashleigh DOTY, RN, CM
[2024-07-25] MEDS: 0.9% Saline Lock 10 ML Syringe IV (21:47)
[2024-07-25] MEDS: Ceftriaxone 2 GM in 0.9% Normal Saline (50mL MB+) 50 ML IV (21:48)
[2024-07-25] MEDS: Azithromycin 500 MG in 0.9% Normal Saline (250mL Bag) 250 ML 255 MG IV (22:36)
[2024-07-26 01:40] VITALS: BP 112/81; PULSE 101; PULSE 86; RESP 16; RESP 18; TEMP 36.6; O2SAT 98
[2024-07-26] MEDS: Ipratropium/Albuterol Sulfate 3 ML AMPUL.NEB INHALATION ×2 (01:41→07:36)
[2024-07-26 07:38] VITALS: PULSE 90; RESP 16; O2SAT 98
[2024-07-26 07:39] VITALS: O2SAT 97
[2024-07-26 08:00] VITALS: BP 118/87; PULSE 100; RESP 16; TEMP 36.7; O2SAT 97
[2024-07-26 08:33] LABS: Absolute Lymphocyte Count 1.02 X10^3/uL (0.83-4.51); Absolute Neutrophil Count 1.2 X10^3/uL (2.0-7.7); Basophil# 0.01 X10^3/uL; Basophil% 0.4 % (0-1); Eosinophil# 0.02 X10^3/uL; Eosinophils% 0.8 % (0-5); Hematocrit 37.8 % (37-47); Hemoglobin 12.4 g/dL (12.0-15.0); Lymphocyte # 1.02 X10^3/ul (0.83-4.51); Lymphocyte % 39.2 % (19-41); Mean Corp Hgb Conc 32.8 g/dL (32-36); Mean Corpuscular Hgb 28.4 pg (27.0-32.0); Mean Corpuscular Volume 86.5 fL (81-99); Mean Platelet Vol. 9.1 fl (6.2-12.0); Monocyte# 0.27 X10^3/uL; Monocyte% 10.4 % (0-10); NRBC Flagged by Analyzer 0 % (0-5); Neutrophil # 1.24 X10^3/uL (2.7-7.7); Neutrophil % 47.7 % (47-70); POSITIVE MORPHOLOGY YES; Platelet Count 226 K/mm3 (150-450); RBC Distribution Width CV 14.3 % (11.6-14.6); RBC Distribution Width SD 45.2 fl (35.1-43.9); Red Blood Count 4.37 M/mm3 (4.2-5.4); White Blood Count 2.6 K/mm3 (4.4-11.0)
[2024-07-26 08:34] LABS: Differential Indicated SCAN CRITERIA MET
--- NOTE | 2024-07-26 08:38 | CPS ---
placed pt on RA at this time. Pt sat is 98%. RN aware.
[2024-07-26 09:10] LABS: Atypical Lymphocyte 1+ %
[2024-07-26 09:19] LABS: Anion Gap 6 (5-15); BUN 8 mg/dL (7-18); BUN/Creat Ratio 16.9 RATIO (10-20); Chloride 107 mmol/L (98-107); Creatinine, Serum 0.47 mg/dL (0.55-1.02); EST Glomerular Filtration Rate 164 mL/min (>60); Est Glom Filt Rate - Afr Amer 198 mL/min (>60); Estimated Creatinine Clearance 151.14 ml/min; Glucose 102 mg/dL (74-106); Potassium 3.4 mmol/L (3.5-5.1); Sodium Level 138 mmol/L (136-145)
[2024-07-26] MEDS: Oseltamivir Phosphate 75 MG Capsule PO (09:28)
[2024-07-26] MEDS: guaiFENesin 1,200 MG Tablet 1200 MG PO (09:28)
[2024-07-26 10:36] VITALS: O2SAT 94; O2SAT 96
--- NOTE | 2024-07-26 11:55 | DS.PCM_ITS ---
Providers Date of Admission: 07/24/24 Date of Discharge: 07/26/24 Primary Care Physician: Dr. Farhat Gann MD Reason For Visit: HYPOXIA, TACYCARDIA, INFLUENZA Diagnosis Discharge Diagnosis (1) Pneumonia: Status: Acute Code(s): J18.9 - Pneumonia, unspecified organism (2) Influenza A: Status: Acute Code(s): J10.1 - Influenza due to other identified influenza virus with other respiratory manifestations (3) Hypoxia: Status: Acute Code(s): R09.02 - Hypoxemia Plan #HYpoxia due to Influenza infection and superimposed pneumonia * patient on 1L of oxygen. * on tamiflu and IV ceftriaxone as well as azithromycin. * breathing treatment with bronchodilators. * titrate oxygen to maintain sats >90% * DVT prophylaxis: SCDs Medications at Discharge Home Medications azithromycin 500 mg tablet 500 mg PO DAILY #3 tabs 07/26/24 cefdinir 300 mg capsule 300 mg PO BID #10 caps 07/26/24 oseltamivir 75 mg capsule 75 mg PO BID #6 caps 07/26/24 Hospital Course Operations None Procedures None Summary of Care Provided Minutes Spent on Discharge: 45 Hospital Course: Patient is a 28-year-old female with no significant past medical history was admitted through the ED on 07/24/2024 with a complaint of shortness of breath and inability to take in a deep breath. The symptoms had started on the day of admission. She had assisted fever. She said multiple family members had been ill with a respiratory infection also. He had a cough and was productive of a thick sputum but she was not sure what color it was. She was tachycardic and febrile and tested positive for influenza A in the ED. Chest x-ray also showed a left lower lobe infiltrate. She was admitted to be managed for hypoxia due to influenza A infection with superimposed pneumonia. She desaturated to 87% on room air and required 2 L of oxygen. She was placed on Tamiflu as well as IV ceftriaxone and azithromycin. She was hydrated with IV fluids. Her shortness of breath gradually improved and she felt much better. She was eventually weaned off of oxygen and had walking pulse ox on the day of discharge which showed that she did not require any oxygen. She was discharged home with a prescription for p.o. Tamiflu to complete a 5-day course and was also discharged on p.o. cefdinir and azithromycin to complete a 5-day course. She is follow-up with her primary care doctor within 1 to 2 weeks. Of note patient is breast- feeding and I did clarify with pharmacy with the cefdinir and azithromycin would be safe with as well as the Tamiflu. Patient seen and examined prior to discharge. He had no active complaints. Review of systems otherwise negative. Labs and vitals reviewed. Home medication reviewed and reconciled. Physical Exam Const alert, oriented x3 and no apparent distress Constitutional Narrative: frail looking General Appearance: cooperative and comfortable Exam Limitations: no limitations HEENT normocephalic, head/scalp atraumatic, hearing grossly normal bilaterally, moist oral mucous membranes, oropharynx normal and gingiva normal Mouth: oral and palatal mucosa normal Eyes PERRL and EOMs intact bilaterally Neck no lymphadenopathy and supple Lymph Lymphatic: no lymphadenopathy noted and no lymphedema noted Resp Resp Narrative: mildly diminished breath sounds bibasally, no wheezes or crackles. On 1L of oxygen by nasal canula Cardio regular rate, regular rhythm, S1 normal heart sound, S2 normal heart sound and no murmurs GI normal to inspection, nondistended, normoactive bowel sounds, soft to palpation, non-tender and non-distended Extremity normal capillary refill, no clubbing, cyanosis or edema and no calf tenderness General Extremity: no tenderness to palpation of joints or extremities Skin General Skin Exam: no breakdown Neuro oriented x3, CN's II-XII intact bilaterally, moves all extremities, no focal motor deficits and no sensory deficits noted Motor Exam: strength 5/5 throughout and general weakness Psych thought process normal and cooperative Appearance: appropriate Weight / BMI Weight Weight: 134 lb 14.308 oz Body Mass Index (BMI) 50.8 ABG / Lab / Microbiology Data 07/26/24 08:20 07/26/24 08:20 Laboratory: Laboratory Results - last 24 hr 07/26/24 08:20: WBC 2.6 L, RBC 4.37, Hgb 12.4, Hct 37.8, MCV 86.5, MCH 28.4, MCHC 32.8, RDW Std Deviation 45.2 H, RDW Coeff of Lucas 14.3, Plt Count 226, MPV 9.1, Immature Gran % (Auto) 1.500 H, Neut % (Auto) 47.7, Lymph % (Auto) 39.2, M matilda % (Auto) 10.4 H, Eos % (Auto) 0.8, Baso % (Auto) 0.4, Absolute Neuts (auto) 1.2 L, Absolute Lymphs (auto) 1.02, Nucleated RBC % 0, Atypical Lymphocytes 1+, Sodium 138, Potassium 3.4 L, Chloride 107, Carbon Dioxide 25.0, Anion Gap 6, BUN 8, Creatinine 0.47 L, Estim Creat Clear Calc 151.14, Est GFR (MDRD) Af Amer 198, Est GFR (MDRD) Non-Af 164, BUN/Creatinine Ratio 16.9, Glucose 102, Calcium 9.0 Microbiology: Microbiology 07/25/24 11:27 Sputum, Expectorated/Coughed Gram Stain - Final 07/25/24 11:27 Sputum, Expectorated/Coughed Respiratory Culture - Preliminary Mixed normal respiratory ricky. No Haemophilus, Streptococcus pneumoniae, beta-hemolytic Streptococcus or Staphylococcus aureus isolated. 07/24/24 12:45 Mucosa - Nose SARS-CoV-2, Influenza & RSV (PCR) - Final Influenzae A D/C Instructions Discharge Diet: Low fat / Low cholesterol Discharge Activity: Return to Normal Activity Weight Bearing Status: Weight bearing as tolerated Call your doctor if you observe: Fever of 101 or Higher, Shortness of breath, Dizziness and Chest pain DC O2, CPAP, BIPAP Needs RN Home O2 Qualification: Home O2 Qualification: Is the patient on home oxygen No 07/26/24 10:36 Home O2 Qualification: AT REST 1- Pulse Ox at rest 94 07/26/24 10:36 Home O2 Qualification: WITH AMBULATION 1- Pulse Ox with ambulation 96 07/26/24 10:36 1- Oxygen Flow Rate with 0 07/26/24 10:36 ambulation Home O2 Discharge instructions: No DC home with Oxygen: No Meaningful Use Info Meaningful Use Meaningful Use Diagnoses (Choose all that apply): None applicable Ischemic Stroke Statin Dosing Therapy Reference: STATIN DOSE THERAPY REFERENCE: * Patients > 75 years receive moderate or high dose statin therapy. * Patients 75 years or YOUNGER should receive HIGH intensity statin dose unless contraindicated. You will be required to document reason for non-treatment if statin daily dose does not meet guidelines. HIGH DOSE STATIN THERAPY DAILY Atorvastatin > than or = to 40 mg Rosuvastatin > than or = to 20 mg Amlodipine + Atorvastatin > than or = to 2.5/40 mg Ezetimibe + Simvastatin 10/80 mg Simvastatin 80mg Discharge Plan Admission Admit Date/Time: 07/24/24 16:41 Primary Reason for Your Visit: hypoxia, acute influenza Attending Provider: Amina Camp Primary Care Provider: Farhat Gann Consulting Providers: Tosha Mares Instructions Patient Instructions: ED Influenza (Adult) Discharge Orders/Prescriptions Prescriptions: New oseltamivir 75 mg Capsule 75 mg PO BID Qty: 6 0RF cefdinir 300 mg capsule 300 mg PO BID Qty: 10 0RF azithromycin 500 mg tablet 500 mg PO DAILY Qty: 3 0RF Referrals / Follow Up: Farhat Gann MD [Primary Care Provider] - Within 1 Week Disposition Disposition (needs filled in before D/C Order can be placed): Home, Self Care Charges/Coding Visit Charges Inpatient E&M: 65340 Disch Hosp >30min
--- NOTE | 2024-07-26 11:55 | DCINST_ITS ---
Discharge Instructions Diet Discharge Diet: Low fat / Low cholesterol DC O2, CPAP, BIPAP needs RN Home O2 Qualification: Home O2 Qualification: Is the patient on home oxygen No 07/26/24 10:36 Home O2 Qualification: AT REST 1- Pulse Ox at rest 94 07/26/24 10:36 Home O2 Qualification: WITH AMBULATION 1- Pulse Ox with ambulation 96 07/26/24 10:36 1- Oxygen Flow Rate with 0 07/26/24 10:36 ambulation Home O2 Discharge instructions: No Dressing / Incision Discharge Activity: Return to Normal Activity Weight Bearing Status: Weight bearing as tolerated Dressing / Incision Call your doctor if you observe: Fever of 101 or Higher, Shortness of breath, Dizziness and Chest pain Follow Up Care Test Results: Test results from this visit will be discussed in further detail at your follow- up appointment, if applicable. Discharge Plan Admission Admit Date/Time: 07/24/24 16:41 Primary Reason for Your Visit: hypoxia, acute influenza Attending Provider: Amina Camp Primary Care Provider: Farhat Gann Consulting Providers: Tosha Mares Instructions Patient Instructions: ED Influenza (Adult) Discharge Orders/Prescriptions Prescriptions: New oseltamivir 75 mg Capsule 75 mg PO BID Qty: 6 0RF cefdinir 300 mg capsule 300 mg PO BID Qty: 10 0RF azithromycin 500 mg tablet 500 mg PO DAILY Qty: 3 0RF Referrals / Follow Up: Farhat Gann MD [Primary Care Provider] - Within 1 Week Disposition Disposition (needs filled in before D/C Order can be placed): Home, Self Care
--- NOTE | 2024-07-26 13:04 | PHA.DC.MC.R ---
Pharmacy [facility] has performed discharge medication reconciliation and counseling for this patient. Patient counseled via telephone due to precautions. 1. AZITHROMYCIN 500MG PO DAILY X 3 DAYS 2. CEFDINIR 300MG PO BID X 5 DAYS 3. OSELTAMIVIR 75MG PO BID X 3 DAYS The patient's discharge medication list was reviewed for discrepancies and discrepancies were resolved. The patient was counseled on the following discharge medications and changes in medications for homegoing were reviewed. The Reason for Use, instructions for use, and potential side effects were reviewed for all new medications. The patient's questions regarding all of their medications were answered. The patient was able to verbally demonstrate an understanding of their discharge medications. Medications at Discharge Home Medications azithromycin 500 mg tablet 500 mg PO DAILY #3 tabs 07/26/24 cefdinir 300 mg capsule 300 mg PO BID #10 caps 07/26/24 oseltamivir 75 mg capsule 75 mg PO BID #6 caps 07/26/24
== END 2024-07-26 13:34 | disposition home or self-care (01) | DRG 195 ==
LOC: ED 15:49 → PCU 16:44
PROVIDERS: Admitting Provider Internal Medicine; Emergency Provider Emergency Medicine; PCP Family Medicine; Visit Provider Student in an Organized Health Care Education/Training Program
DX: J10.08 Influenza due to other identified influenza virus with other specified pneumonia (principal); R09.02 Hypoxemia; J15.9 Unspecified bacterial pneumonia
CPT/HCPCS: 36415; 71046; 80048; 81001; 83605; 84484; 84703; 85025; 85379; 87070; 87205; 87631; 93005; 94640; 94668; 97802; 99285; A4216; J0696